=== PATIENT | female | born 1965 | race Caucasian/White ===

== ENCOUNTER 2021-09-20 15:23 | Emergency (ER) | payer OTHER, SELFPAY ==
[2021-09-20] VITALS (20 sets, daily range): BP systolic 132–149; BP diastolic 74–85; PULSE 64–95; RESP 11–24; TEMP 37.1; O2SAT 96–100
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
[2021-09-20] MEDS: Ketorolac 15 MG/ML VIAL IVP (15:39)
[2021-09-20 15:49] LABS: Source Nasal/Nares
[2021-09-20 16:40] LABS: COVID-19 PCR Negative (Negative)
[2021-09-20] MEDS: MORPHine 4 MG/ML SYR IVP (17:50)
--- NOTE | 2021-09-20 18:00 | DI.RAD_ITS ---
Exam(s) XR WRIST RT COMPLETE EXAM: XR WRIST RT COMPLETE CLINICAL HISTORY: s/p attempted closed reduction. TECHNIQUE: 2D digital imaging was performed. COMPARISON: CR XR WRIST RT COMPLETE from 09/20/2021 FINDINGS: Three in cast views: Post reduction images of distal radius and ulnar fractures with some improved alignment evident. Mil d residual dorsal displacement of the distal radial fragment. Radial styloid fracture also noted. N o significant ulnar variance. IMPRESSION: DATA REPOSITORY: RADIATION DOSE DELIVERED:
[2021-09-20] MEDS: Propofol 200 MG/20 ML VIAL 100 MG IVP (18:16)
--- NOTE | 2021-09-20 18:46 | DI.VRAD_ITS ---
PROCEDURE INFORMATION: Exam: XR Right Wrist Exam date and time: 09/20/2021 6:18 PM Age: 56 years old Clinical indication: Other: S/P attempted closed reduction TECHNIQUE: Imaging protocol: Radiologic exam of the Right wrist. Views: 3 or more views. COMPARISON: CR XR WRIST RT COMPLETE 09/20/2021 4:24 PM FINDINGS: Limitations: The splinting material slightly limits evaluation of osseous detail. Bones/joints: The patient is status post splinting of distal radial and ulnar fractures. There is improved alignment noted, with mild residual dorsal displacement of the distal radial fragment. No new fracture is seen. No joint dislocation. Soft tissues: Soft tissue swelling noted. IMPRESSION: Status post fracture realignment. No evidence of new fracture. Dictated and Authenticated by: Raquel Penaloza MD. Ordering:ALEX Peñaloza MD
== END 2021-09-20 19:12 | disposition home or self-care (01) ==
PROVIDERS: Emergency Provider Emergency Medicine
DX: S52.501A Unspecified fracture of the lower end of right radius, initial encounter for closed fracture (principal); S52.611A Displaced fracture of right ulna styloid process, initial encounter for closed fracture; F17.210 Nicotine dependence, cigarettes, uncomplicated; Z20.822 Contact with and (suspected) exposure to COVID-19; V43.52XA Car driver injured in collision with other type car in traffic accident, initial encounter
CPT/HCPCS: 87635; 96374; 96375; 99284; 25605; 73090; 73110; J1885; J2270; J2704